=== PATIENT | female | born 1985 | race Caucasian/White ===

== ENCOUNTER 2018-01-05 06:31 | Emergency (ER) | payer OTHER ==
[~2018-01-05] VITALS: Ht 172.7 cm; Wt 145.2 kg
[2018-01-05 08:32] VITALS: BP 120/75
== END 2018-01-05 08:33 | disposition home or self-care (01) ==
LOC: M.ERS 06:31
DX: S20.229A Contusion of unspecified back wall of thorax, initial encounter (principal); G43.909 Migraine, unspecified, not intractable, without status migrainosus; F41.9 Anxiety disorder, unspecified; G62.9 Polyneuropathy, unspecified; F17.210 Nicotine dependence, cigarettes, uncomplicated; Z91.041 Radiographic dye allergy status; Z88.5 Allergy status to narcotic agent; Z88.6 Allergy status to analgesic agent; W18.39XA Other fall on same level, initial encounter; Y93.89 Activity, other specified; Y92.89 Other specified places as the place of occurrence of the external cause; Y99.8 Other external cause status

== ENCOUNTER 2018-10-02 16:25 | Emergency (ER) | payer OTHER ==
[~2018-10-02] VITALS: Ht 172.7 cm; Wt 150.6 kg
[2018-10-02 16:48] LABS: URINE BLOOD TRACE (Negative); URINE CLARITY SL CLOUDY; URINE COLOR YELLOW; URINE GLUCOSE-RANDOM NEGATIVE (Negative); URINE KETONES NEGATIVE (Negative); URINE LEUKOCYTES-REFLEX NEGATIVE (Negative); URINE NITRITE-REFLEX NEGATIVE (Negative); URINE PROTEIN NEGATIVE (Negative); URINE UROBILINOGEN 0.2 E.U./dl (0.2-1.0)
[2018-10-02] MEDS ORDERED: TRILEPTAL300 MG PO ×2 (16:48→23:15)
[2018-10-02] MEDS ORDERED: ZOLOFT50 MG PO (16:48)
[2018-10-02] MEDS ORDERED: XANAX1 MG PO (16:48)
[2018-10-02] MEDS ORDERED: PRAZOSIN HCL2 MG PO (16:48)
[2018-10-02 16:49] LABS: ICTOTEST (BILI CONFIRMATORY) Negative (Negative); URINE BILIRUBIN 1+ (Negative)
[2018-10-02 16:54] LABS: MUCUS 4-6 Moderate strn/LPF (None Seen); SQUAMOUS >10 Many /LPF (0-3); URINE RBC 0-2 Rare /HPF (0-2); URINE WBC-REFLEX 0-5 Rare /HPF (0-5)
[2018-10-02 16:55] LABS: CASTS None Seen /LPF (None Seen); CRYSTALS None Seen /LPF (None Seen)
[2018-10-02 16:57] LABS: AMP/METHAMP Negative (Negative); BARBITURATES Negative (Negative); BENZODIAZEPINES Negative (Negative); COCAINE Negative (Negative); METHADONE Negative (Negative); OPIATES Negative (Negative); PCP Negative (Negative); THC Negative (Negative)
[2018-10-02 17:01] LABS: ABSOLUTE EOSINOPHILS 0.2 thou/uL (0.0-0.7); ABSOLUTE LYMPHOCYTES 1.4 thou/uL (0.8-5.3); ABSOLUTE MONOCYTES 0.4 thou/uL (0.0-1.2); ABSOLUTE NEUTROPHILS 3.8 thou/uL (1.6-8.1); BASOPHILS 0.8 %; EOSINOPHILS 3.3 %; HEMATOCRIT 40.5 % (37.0-47.0); HEMOGLOBIN 13.9 gm/dL (12.0-15.0); MCH 28.3 pg (26.0-34.0); MCHC 34.4 g/dL (28.0-37.0); MCV 82.2 fL (80.0-100.0); MONOCYTES 6.4 %; MPV 8.8 fl. (7.2-11.1); NUCLEATED RBCS 0 /100WBC; PLATELET COUNT* 268 thou/uL (150-400); POLYS 65.5 %; RBC 4.93 mil/uL (4.20-5.00); RDW-CV 14.1 % (10.5-14.5); WBC 5.8 thou/uL (4.0-11.0)
[2018-10-02 17:13] LABS: ALBUMIN 3.2 g/dL (3.4-5.0); CREATININE 0.8 mg/dL (0.6-1.3); POTASSIUM 3.9 mmol/L (3.5-5.1); TOTAL BILIRUBIN 0.3 mg/dL (<0.1-1.0); TOTAL PROTEIN 7.7 g/dL (6.4-8.2)
[2018-10-02 17:18] LABS: SALICYLATE < 2.8 mg/dL (2.8-20.0)
[2018-10-02 17:19] LABS: ACETAMINOPHEN < 2 ug/mL (10-30); ALCOHOL < 10 mg/dL (<10)
[2018-10-02] MEDS ORDERED: MINIPRESS2 MG PO (23:15)
[2018-10-02] MEDS ORDERED: XANAX 1 MG TABLE1 MG PO (23:15)
[2018-10-02] MEDS ORDERED: SERTRALINE HCL50 MG PO (23:15)
[2018-10-02 23:25] VITALS: BP 125/93
== END 2018-10-02 23:27 ==
LOC: M.ERS 16:25
PROVIDERS: Emergency Medicine Emergency Medical Services
DX: F28 Other psychotic disorder not due to a substance or known physiological condition (principal); R45.851 Suicidal ideations; F17.210 Nicotine dependence, cigarettes, uncomplicated; F41.9 Anxiety disorder, unspecified; G43.909 Migraine, unspecified, not intractable, without status migrainosus; F20.9 Schizophrenia, unspecified; M54.9 Dorsalgia, unspecified; G89.29 Other chronic pain; Z91.041 Radiographic dye allergy status; Z88.8 Allergy status to other drugs, medicaments and biological substances; Z88.5 Allergy status to narcotic agent

== ENCOUNTER 2019-01-16 14:50 | Emergency (ER) | payer MEDICAID ==
[~2019-01-16] VITALS: Ht 172.7 cm; Wt 152.0 kg
[~2019-01-16 14:50] MED LIST: MINIPRESS2 MG PO; PRAZOSIN HCL2 MG PO; SERTRALINE HCL50 MG PO; TRILEPTAL300 MG PO; XANAX 1 MG TABLE1 MG PO; XANAX1 MG PO; ZOLOFT50 MG PO
[2019-01-16] MEDS ORDERED: AMITRIPTYLINE150 MG PO (14:54)
[2019-01-16] MEDS ORDERED: REMERON15 MG PO ×2 (14:54→15:19)
[2019-01-16] MEDS ORDERED: SEROQUEL XR 30300 M1 PO (14:54)
[2019-01-16] MEDS ORDERED: QUETIAPINE FUM100 MG PO (15:19)
[2019-01-16] MEDS ORDERED: XANAX 1 MG TABLE1 MG PO (15:19)
[2019-01-16] MEDS ORDERED: TRILEPTAL300 MG PO (15:19)
[2019-01-16 15:24] VITALS: BP 123/55
== END 2019-01-16 15:25 | disposition home or self-care (01) ==
LOC: M.ERS 14:50
DX: F41.9 Anxiety disorder, unspecified (principal); Z76.0 Encounter for issue of repeat prescription; G89.29 Other chronic pain; M19.90 Unspecified osteoarthritis, unspecified site; G62.9 Polyneuropathy, unspecified; F17.210 Nicotine dependence, cigarettes, uncomplicated; Z91.041 Radiographic dye allergy status; Z88.5 Allergy status to narcotic agent; Z88.6 Allergy status to analgesic agent

== ENCOUNTER 2019-01-17 16:49 | Emergency (ER) | payer MEDICAID ==
[~2019-01-17] VITALS: Ht 167.6 cm; Wt 136.1 kg
[~2019-01-17 16:49] MED LIST changes: +AMITRIPTYLINE150 MG PO; +QUETIAPINE FUM100 MG PO; +REMERON15 MG PO; +SEROQUEL XR 30300 M1 PO
[2019-01-17 18:00] VITALS: BP 135/67
== END 2019-01-17 18:19 | disposition home or self-care (01) ==
LOC: M.ERS 16:49
DX: S86.812A Strain of other muscle(s) and tendon(s) at lower leg level, left leg, initial encounter (principal); F17.210 Nicotine dependence, cigarettes, uncomplicated; G62.9 Polyneuropathy, unspecified; G43.909 Migraine, unspecified, not intractable, without status migrainosus; F41.9 Anxiety disorder, unspecified; M54.9 Dorsalgia, unspecified; G89.29 Other chronic pain; M19.90 Unspecified osteoarthritis, unspecified site; Z91.041 Radiographic dye allergy status; Z88.8 Allergy status to other drugs, medicaments and biological substances; Z88.6 Allergy status to analgesic agent; Z88.5 Allergy status to narcotic agent; W18.39XA Other fall on same level, initial encounter; Y92.89 Other specified places as the place of occurrence of the external cause; Y93.89 Activity, other specified; Y99.8 Other external cause status

== ENCOUNTER 2020-08-26 22:41 | Emergency (ER) | payer MEDICAID ==
[~2020-08-26] VITALS: Ht 172.7 cm; Wt 194.1 kg
[2020-08-26] MEDS ORDERED: BUSPAR30 MG PO (23:13)
[2020-08-26] MEDS ORDERED: ZOLOFT50 M1 PO (23:13)
[2020-08-26] MEDS ORDERED: HYDROCODON-ACE1 EAC7 PO (23:14)
[2020-08-26] MEDS ORDERED: NEURONTIN 300M300 M2 PO (23:15)
[2020-08-27] MEDS ORDERED: CYCLOBENZAPRINE5 MG PO (04:25)
[2020-08-27 04:30] VITALS: BP 149/62
== END 2020-08-27 04:30 | disposition home or self-care (01) ==
LOC: M.ERS 22:41
DX: S80.02XA Contusion of left knee, initial encounter (principal); S40.022A Contusion of left upper arm, initial encounter; M19.90 Unspecified osteoarthritis, unspecified site; G43.909 Migraine, unspecified, not intractable, without status migrainosus; G89.29 Other chronic pain; F17.210 Nicotine dependence, cigarettes, uncomplicated; Z88.6 Allergy status to analgesic agent; Z91.041 Radiographic dye allergy status; W18.39XA Other fall on same level, initial encounter; Y93.89 Activity, other specified; Y92.59 Other trade areas as the place of occurrence of the external cause; Y99.8 Other external cause status

== ENCOUNTER 2020-12-21 22:45 | Emergency (ER) | payer MEDICAID ==
[~2020-12-21] VITALS: Ht 170.2 cm; Wt 199.6 kg
[~2020-12-21 22:45] MED LIST changes: +BUSPAR30 MG PO; +CYCLOBENZAPRINE5 MG PO; +HYDROCODON-ACE1 EAC7 PO; +NEURONTIN 300M300 M2 PO; +ZOLOFT50 M1 PO
[2020-12-21] MEDS ORDERED: LATUDA60 MG PO (22:53)
[2020-12-22] MEDS ORDERED: MELOXICAM15 MG PO (00:45)
[2020-12-22 00:55] VITALS: BP 138/67
== END 2020-12-22 01:58 | disposition home or self-care (01) ==
LOC: M.ERS 22:45
DX: S83.8X1A Sprain of other specified parts of right knee, initial encounter (principal); G43.909 Migraine, unspecified, not intractable, without status migrainosus; M19.90 Unspecified osteoarthritis, unspecified site; E66.01 Morbid (severe) obesity due to excess calories; F17.210 Nicotine dependence, cigarettes, uncomplicated; Z68.44 Body mass index [BMI] 60.0-69.9, adult; Z91.041 Radiographic dye allergy status; Z88.6 Allergy status to analgesic agent; X50.9XXA Other and unspecified overexertion or strenuous movements or postures, initial encounter; Y93.89 Activity, other specified; Y92.89 Other specified places as the place of occurrence of the external cause; Y99.8 Other external cause status